=== PATIENT | male | born 1960 | race Caucasian/White ===

== ENCOUNTER 2021-06-20 17:08 | Emergency (ER) | payer OTHER ==
[~2021-06-20 17:08] MED LIST: ASPIRIN EC81 MG PO; HYDREA500 MG PO; NORCO 5-325 TA1 EACH PO; PANTOPRAZOLE SO20 MG PO; VITAMIN D31000 UNIT PO
[2021-06-20] MEDS ORDERED: RIZATRIPTAN5 M1 SL (20:13)
== END 2021-06-20 20:25 | disposition home or self-care (01) ==
LOC: FER 17:08
DX: R51.9 Headache, unspecified (principal); I25.2 Old myocardial infarction; Z28.310 Unvaccinated for COVID-19
CPT/HCPCS: 70450